=== PATIENT | female | born 1975 | race Caucasian/White ===

== ENCOUNTER 2024-05-14 16:08 | Emergency (ER) | payer OTHER ==
[2024-05-14 16:13] VITALS: BP 149/78; PULSE 90; RESP 18; TEMP 98.9; BMI 26.4
[2024-05-14 17:37] LABS: EPI CELLS 26 /uL (0-25.1); HYALINE CASTS 1 /uL (0-3.1); URINE APPEARANCE CLEAR; URINE BACTERIA 411 /uL (0-1359); URINE BILIRUBIN NEGATIVE (NEGATIVE); URINE COLOR YELLOW; URINE GLUCOSE (UA) NEGATIVE (NEGATIVE); URINE KETONE NEGATIVE (NEGATIVE); URINE LEUK ESTERASE NEGATIVE (NEGATIVE); URINE NITRITE NEGATIVE (NEGATIVE); URINE PROTEIN 2+ (NEGATIVE); URINE UROBILINOGEN 0.2 mg/dL (0.2-1.0); URINE WBC 15 /uL (0-25.8)
[2024-05-14 17:39] LABS: URINE RBC 22.7 /uL (0-23.9)
[2024-05-14 17:42] LABS: INR 1.01 (0.83-1.09); PROTHROMBIN TIME (PATIENT) 11.1 SEC (9.7-13.0)
[2024-05-14 17:45] LABS: ACTIVATED PTT 27.5 SECONDS (25.2-36.5)
[2024-05-14 17:46] LABS: BASO % 0.8 % (0-2.0); EOS % 0.2 % (0-4.5); HEMOGLOBIN 8.2 GM/dL (10.7-15.3); LYMPH % 4.7 % (8-40); MCH 28.4 pg (25.7-33.7); MCHC 31.6 g/dl (32.0-36.0); MEAN CELL VOLUME 89.9 fl (80-96); MEAN PLT VOLUME 9.8 fl (7.5-11.1); NEUT % 90.3 % (42.8-82.8); PLATELET COUNT 220 10^3/uL (134-434); RBC 2.89 M/mm3 (3.60-5.2); WHITE BLOOD COUNT 7.8 K/mm3 (4.0-10.0)
[2024-05-14 17:56] LABS: POTASSIUM 4.7 mmol/L (3.5-5.1)
[2024-05-14 17:58] LABS: ALBUMIN 3.4 g/dl (3.4-5.0); BLOOD UREA NITROGEN 25.7 mg/dL (7-18)
[2024-05-14 17:59] LABS: MAGNESIUM 1.4 mg/dL (1.8-2.4)
[2024-05-14 18:02] LABS: CREATININE 1.3 mg/dL (0.55-1.3)
[2024-05-14 18:03] LABS: BILIRUBIN,TOTAL 0.3 mg/dL (0.2-1); TOT PROT 6.8 g/dl (6.4-8.2)
[2024-05-14 18:07] LABS: N-TERMINAL BNP 1041.7 pg/ml (5-125)
== END 2024-05-14 19:21 | disposition home or self-care (01) ==
LOC: JER 16:08
DX: R06.02 Shortness of breath (principal); R05.9 Cough, unspecified; R09.81 Nasal congestion; R63.0 Anorexia; Z20.822 Contact with and (suspected) exposure to COVID-19
CPT/HCPCS: 0241U-QW; 36415; 71046-TC-FY; 80053; 80197; 81003; 83735; 83880; 84484; 85025; 85610; 85730; 87086; 93005; 93010; 99285-25